=== PATIENT | female | born 1980 | race Two or more races ===

== ENCOUNTER 2016-06-24 11:12 | Emergency (ER) | payer MEDICAID ==
[~2016-06-24] VITALS: Ht 170.2 cm; Wt 63.5 kg
[2016-06-24 11:45] VITALS: BP 101/63
[2016-06-24 12:25] LABS: APPEARANCE,URINE SLIGHTLY CLOUDY; KETONES,URINE NEGATIVE (NEGATIVE); NITRITE,URINE NEGATIVE (NEGATIVE); PH,URINE NEGATIVE (4.5-8.0); PROTEIN,URINE NEGATIVE (NEGATIVE)
[2016-06-24 12:26] LABS: BACTERIA,URINE FEW /HPF; MUCUS,URINE FEW /LPF (NONE/OCC); RBC,URINE 0-2 /HPF (0 - 2); SQUAMOUS EPITHELIAL CELL,UR FEW /LPF (NONE/OCC); UROBILINOGEN,URINE NORMAL MG/DL (0.0-1.0)
[2016-06-24 12:28] LABS: LEUKOCYTE ESTERASE ,URINE TRACE (NEGATIVE)
--- NOTE | 2016-06-24 12:40 | Emergency Room Report ---
History of Present Illness General Chief Complaint: Back Pain-No Injury Source: Patient Present Illness HPI 36-year-old female presents to emergency Department complaining of 10 out of 10 in severity right-sided low back pain with intermittent radiation into the right posterior thigh x2 days. Patient states she has a history of intermittent pain episodes exactly as one she is having today. Patient states the last year she had MRI performed which showed protrusion in the L4-L5 disc space in addition to muscle spasms. Patient states that on occasion she will have an exacerbation of her pain, and it usually is every 3 or 4 months if she does something strenuous. Patient states she's been picking up her daughter complaining of her a lot recently which may have contributed to her exacerbation today. Patient states she takes Tylenol which provided minimal relief. Patient states she was also just seen by her DIRECTOR ENVIRONMENTAL in 10 days ago to have an performed. Patient denies pain or vaginal discharge at this time. Patient states that she had an ultrasound performed by her DIRECTOR ENVIRONMENTAL and he states that everything was fine and there is no concern for retained products. denies hx of neoplastic disease, denies recent spinal procedures. Patient denies abdominal pain denies nausea denies vomiting denies fevers or chills. Denies CP, Palpitations, LOC, AMS, dizziness, Changes in Vision, Sensation, paresthesias, or a sudden severe headache. Allergies: Coded Allergies: No Known Allergies (Unverified , 06/24/16) Patient History Past Medical History: see triage record Past Surgical History: none Pertinent Family History: none Last Menstrual Period: 06/16/16 Now: No : 2 Para: 1 Immunizations: UTD Reviewed Nursing Documentation: PMH: Agreed, PSxH: Agreed Nursing Documentation-PMH Past Medical History: No Stated History Review of Systems All Other Systems: negative except mentioned in HPI Physical Exam Vital Signs Date Time Temp Pulse Resp B/P Pulse Ox O2 Delivery O2 Flow Rate FiO2 06/24/16 11:20 98.2 87 16 102/66 99 Room Air Sp02 EP Interpretation: reviewed, normal General Appearance: no apparent distress, alert, GCS 15, non-toxic Head: normocephalic, atraumatic Eyes: bilateral eye PERRL, bilateral eye normal inspection ENT: hearing grossly normal, normal pharynx, no angioedema, normal voice Neck: full range of motion, supple/symm/no masses Respiratory: chest non-tender, lungs clear, normal breath sounds, speaking full sentences Cardiovascular #1: regular rate, rhythm, no edema Gastrointestinal: normal bowel sounds, non tender, soft, no guarding, no rebound Rectal: deferred Genitourinary: normal inspection, no CVA tenderness Musculoskeletal: back normal, gait/station normal, normal range of motion, no calf tenderness, tender - right sided paraspinal ttp, no midline ttp, pt. not able to perform straight leg raise. pt. has FROM with pain exacerbated with standing straight up, and with certain degrees of flexion of the lumbar spine, no erythema, no evidence of infeciton or lesions. Neurologic: alert, oriented x3, responsive, motor strength/tone normal, sensory intact, speech normal Psychiatric: judgement/insight normal, memory normal, mood/affect normal, no suicidal/homicidal ideation Reflexes: 4+ bicep (R), 4+ bicep (L), 4+ tricep (R), 4+ tricep (L), 4+ knee (R) , 4+ knee (L) Skin: normal color, no rash, warm/dry, well hydrated Lymphatic: no adenopathy Medical Decision Making PA Attestation Dr. Maxwell is my supervising Physician whom patient management has been discussed with. Diagnostic Impression: Primary Impression: Back pain with right-sided sciatica ER Course Pt. presents to the ED c/o right sided Low back pain with certain positioning causing pain to shoot down the right posterior thigh. 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 She states that she on occasion will have exacerbation of her pain with strenuous activity. -Pt. reports. recent 10 days ago. Ddx considered but are not limited to Fracture, dislocation, contusion, epidural abscess, Sprain/Strain/Spasm, retained POC Vital signs: are WNL, pt. is afebrile H&PE are most consistent with muscle spasm due to chronic lumbar condition .no evidence of change in condition no evidence of cauda equina or neoplastic metastasis. ORDERS: -UA: WNL /unremarkable no evidence of infection. Urine Hcg: Positive -Hcg Quant: Pt. declines Pelvic US: Pt. declined, states she just had pelvic US done by her OBGYN, and there was no concern for retained products. pt.states her doctor said everything was fine. OBGYN is Dr. Carolina Mccoy M.D phone: [phone], --- Spoke with Dr. Mccoy whom confirms Pelvic US performed recently showed NO POC. ED INTERVENTIONS: -IM Toradol -350mg Soma DISCHARGE: At this time pt. is stable for d/c to home. Will provide printed patient care instructions, and any necessary prescriptions. Care plan and follow up instructions have been discussed with the patient prior to discharge. Labs Test 06/24/16 11:50 Urine Color Yellow Urine Appearance Slightly cloudy Urine pH Negative (4.5-8.0) Urine Specific [place] 1.025 (1.005-1.035) Urine Protein Negative (NEGATIVE) Urine Glucose (UA) Negative (NEGATIVE) Urine Ketones Negative (NEGATIVE) Urine Occult Blood 1+ (NEGATIVE) Urine Nitrite Negative (NEGATIVE) Urine Bilirubin Negative (NEGATIVE) Urine Urobilinogen Normal MG/DL (0.0-1.0) Urine Leukocyte Esterase Trace (NEGATIVE) Urine RBC 0-2 /HPF (0 - 2) Urine WBC 2-4 /HPF (0 - 2) Urine Squamous Epithelial Cells Few /LPF (NONE/OCC) Urine Bacteria Few /HPF (NONE) Urine Mucus Few /LPF (NONE/OCC) Urine HCG, Qualitative Positive Last Vital Signs Date Time Temp Pulse Resp B/P Pulse Ox O2 Delivery O2 Flow Rate FiO2 06/24/16 11:20 98.2 87 16 102/66 99 Room Air Disposition: HOME, SELF-CARE Condition: Stable Scripts Acetaminophen* (TYLENOL EXTRA STRENGTH*) 500 Mg Tablet 500 MG ORAL Q6H, #30 TAB 0 Refills Prov: Keyonna Romo P.A. 06/24/16 Cyclobenzaprine Hcl* (FLEXERIL*) 10 Mg Tablet 10 MG ORAL THREE TIMES A DAY, #30 TAB Prov: Keyonna Romo P.A. 06/24/16 [facility] Patient Instructions: Back Pain, Adult, Sciatica Additional Instructions: Take medications as directed. Follow up with OBGYN in 72 HOURS Return sooner to ED if new symptoms occur, or current symptoms become worse. Do not drink alcohol, drive, or operate heavy machinery while taking Muscle relaxer as this may cause drowsiness. Keyonna Romo Jun 24, 2016 12:40
[2016-06-24] MEDS ORDERED: TYLENOL EXTRA500 MG ORAL (13:00)
[2016-06-24] MEDS ORDERED: CYCLOBENZAPRINE10 MG ORAL (13:00)
[2016-06-24] MEDS: Ketorolac 60mg Inj IM ONE (13:12)
[2016-06-24 13:26] VITALS: BP 107/63
== END 2016-06-24 13:25 | disposition home or self-care (01) ==
LOC: EMR 12:37
DX: M54.41 Lumbago with sciatica, right side (principal)
CPT/HCPCS: 81001; 81025; 96372; 99284